=== PATIENT | male | born 1935 | race Caucasian/White ===

== ENCOUNTER 2017-09-07 14:14 | Inpatient (IN) | payer MEDICARE, OTHER ==
[~2017-09-07] VITALS: Ht 180.3 cm; Wt 88.5 kg
--- NOTE | 2017-09-07 19:30 | NUR ---
Received pt lying comfortably in bed, alert, awake and oriented x3. Able to make needs known. Son at bedside. No acute distress noted. denies pain at this time. Complained of SOB, o2 2LPM via NC was given, verbalization of relief was noted. Vital signs stable. MD made aware regarding med recon. Pertinent assessments done. Photos taken and placed on chart. MRSA swab done and sent to lab. Kept clean, dry and comfortable. Side rails up x2. Bed alarm on. Bed locked and in lowest position. Call light within reach. All needs attended.
[2017-09-07] MEDS ORDERED: HEPA1DIS10 SQ (20:52)
[2017-09-07] MEDS ORDERED: HYDR-3326 PO (20:52)
[2017-09-07] MEDS ORDERED: HYDR-4076 PO (20:52)
[2017-09-07] MEDS ORDERED: INSU3INS6 SQ (20:52)
[2017-09-07] MEDS ORDERED: SENN-167 PO (20:52)
[2017-09-07] MEDS ORDERED: DEXTROSE 50% 50 ML DISP.SYRIN IV PRN (22:00)
[2017-09-07] MEDS ORDERED: Z GUARD REMEDY PASTE 57 GM TUBE TOP PRN (22:00)
[2017-09-07] MEDS: HYDROCODONE/APAP 5-325MG TABLET PO PRN (22:19)
[2017-09-07] MEDS: BLOOD SUGAR DIAGNOSTIC 1 EACH STRIP VI SCH (22:19)
[2017-09-07 22:25] VITALS: BP 145/61
[2017-09-07] MEDS: INSULIN REGULAR, HUMAN 300 UNIT/3 ML VIAL SQ PRN (22:29)
[2017-09-08] MEDS: BLOOD SUGAR DIAGNOSTIC 1 EACH STRIP VI SCH ×4 (07:07→21:25)
[2017-09-08 07:10] LABS: BASOPHILS % (AUTO) 0.3 % (0.0-2.0); EOSINOPHILS # (AUTO) 0.1 K/uL (0.0-0.7); EOSINOPHILS % (AUTO) 0.9 % (0.0-7.0); HEMATOCRIT 23.8 % (36.7-47.1); HEMOGLOBIN 8.1 g/dL (12.5-16.3); LYMPHOCYTES # (AUTO) 3.1 K/uL (20.0-40.0); LYMPHOCYTES % (AUTO) 40.5 % (20.5-51.5); MEAN CORPUSCULAR HEMOGLOBIN 33.6 uug (23.8-33.4); MEAN CORPUSCULAR HGB CONC 34 g/dL (32.5-36.3); MEAN CORPUSCULAR VOLUME 98.4 fL (73.0-96.2); MONOCYTES # (AUTO) 0.6 K/uL (2.0-10.0); MONOCYTES % (AUTO) 7.6 % (0.0-11.0); NEUTROPHILS # (AUTO) 3.9 K/uL (1.8-8.9); NEUTROPHILS % (AUTO) 50.7 % (38.5-71.5); PLATELET COUNT (AUTO) 130 K/uL (152-348); WHITE BLOOD COUNT (AUTO) 7.7 K/uL (3.6-10.2)
[2017-09-08 07:25] LABS: CARBON DIOXIDE 26 mmol/L (21-32); CHLORIDE 106 mmol/L (98-107); CREATININE 1.6 mg/dL (0.6-1.3); GLUCOSE 176 mg/dL (74-106); MAGNESIUM 2.1 mg/dL (1.8-2.4); PHOSPHOROUS 2.5 mg/dL (2.5-4.9); UREA NITROGEN, BLOOD 35 mg/dL (7-18)
[2017-09-08] MEDS ORDERED: SENNOSIDES 1 TABLET PO PRN ×2 (07:30→07:45)
[2017-09-08] MEDS ORDERED: HYDROCODONE/APAP 5-325MG TABLET PO PRN (07:30)
[2017-09-08] MEDS ORDERED: LUTEIN ZEAXANTHIN (07:40)
[2017-09-08] MEDS ORDERED: DUTA0.5C PO (07:40)
[2017-09-08] MEDS ORDERED: CYAN10009 PO (07:40)
[2017-09-08] MEDS ORDERED: MIRA25TA PO (07:40)
[2017-09-08] MEDS ORDERED: DOXA4TAB3 PO (07:40)
[2017-09-08] MEDS ORDERED: FERR325T28 PO (07:40)
[2017-09-08] MEDS ORDERED: CHOL200010 PO (07:40)
[2017-09-08] MEDS ORDERED: MAGN400C PO (07:40)
[2017-09-08] MEDS ORDERED: ASPI-612 PO (07:40)
[2017-09-08] MEDS ORDERED: ATEN25TA PO (07:40)
[2017-09-08] MEDS ORDERED: ESOM40CA PO (07:40)
[2017-09-08] MEDS ORDERED: DORZ10DR13 RIGHTEYE (07:40)
[2017-09-08] MEDS ORDERED: ATOR80TA PO (07:40)
[2017-09-08 07:51] LABS: RED BLOOD CELL COUNT(AUTO) 2.42 MIL/uL (4.06-5.63)
[2017-09-08 08:00] VITALS: BP 143/68
--- NOTE | 2017-09-08 08:00 | NUR ---
Received patient awake, verbally responsive, not in any form of acute distress. He denies any pain or discomfort. Call light placed within reach. Reminded to use call light for assistance with verbalized understanding. Assisted to his needs.
[2017-09-08] MEDS ORDERED: DORZOLAMIDE/TIMOLOL OPHT DROP 10 ML BOTTLE RIGHTEYE SCH (09:00)
[2017-09-08] MEDS: ASPIRIN 325 MG TABLET PO SCH (09:08)
[2017-09-08] MEDS: FERROUS SULFATE 325 MG TABEC PO SCH (09:09)
[2017-09-08] MEDS: CYANOCOBALAMIN 1,000 MCG TABLET PO SCH (09:09)
[2017-09-08] MEDS: hydrALAZINE HCL 25 MG TABLET PO SCH ×2 (09:09→21:24)
[2017-09-08] MEDS: CHOLECALCIFEROL 1,000 UNIT TABLET PO SCH (09:09)
[2017-09-08] MEDS: BETA CAROTENE/VIT C & E/MIN TABLET PO SCH (09:09)
[2017-09-08] MEDS: MAGNESIUM OXIDE 250 MG TABLET PO SCH ×2 (09:10→17:06)
[2017-09-08] MEDS: HEPARIN SODIUM,PORCINE 5,000 UNITS/ML VIAL SQ SCH ×2 (09:11→21:38)
[2017-09-08] MEDS: PANTOPRAZOLE SODIUM 40 MG TABLET.DR PO SCH (09:14)
[2017-09-08] MEDS: INSULIN REGULAR, HUMAN 300 UNIT/3 ML VIAL SQ PRN ×3 (11:56→21:31)
[2017-09-08] MEDS ORDERED: TIMO5DRO31 OP (13:29)
[2017-09-08] MEDS: PATIENT MAY USE OWN MED- MD OK RIGHTEYE SCH (14:45)
--- NOTE | 2017-09-08 19:45 | NUR ---
Pt resting in bed. AAO x4. No acute distress noted. C/o pain on the lower back. Will f/u with intervention. Safety measures maintained. Call light and personal belongings within reach. Will continue to monitor.
[2017-09-08] MEDS: DUTASTERIDE 0.5 MG CAPSULE PO SCH (21:22)
[2017-09-08] MEDS: ATENOLOL 25 MG TABLET PO SCH (21:22)
[2017-09-08] MEDS: DOXAZOSIN 2 MG TABLET PO SCH (21:23)
[2017-09-08] MEDS: MYBETRIQ 25 MG PO SCH (21:24)
[2017-09-08] MEDS: INSULIN GLARGINE,HUM 300 UNITS/3 ML CARTRIDGE SQ SCH (21:31)
[2017-09-08] MEDS: HYDROCODONE/APAP 5-325MG TABLET PO PRN (21:40)
[2017-09-08] MEDS ORDERED: ATORVASTATIN 40 MG TABLET ONE (22:07)
[2017-09-08] MEDS: ATORVASTATIN 40 MG TABLET PO SCH (22:41)
--- NOTE | 2017-09-09 05:38 | NUR ---
Pt slept comfortably at night. Meds and insulin coverage given per MD's order. Pt uses urinal to void. All needs attended to promptly. Will endorse to day shift RN. Continue to monitor.
[2017-09-09] MEDS: PANTOPRAZOLE SODIUM 40 MG TABLET.DR PO SCH (06:19)
[2017-09-09] MEDS: BLOOD SUGAR DIAGNOSTIC 1 EACH STRIP VI SCH ×4 (06:30→20:59)
[2017-09-09 07:25] VITALS: BP 122/61
[2017-09-09] MEDS: INSULIN REGULAR, HUMAN 300 UNIT/3 ML VIAL SQ PRN ×4 (08:15→21:05)
[2017-09-09] MEDS: HEPARIN SODIUM,PORCINE 5,000 UNITS/ML VIAL SQ SCH ×2 (08:17→21:06)
[2017-09-09] MEDS: BETA CAROTENE/VIT C & E/MIN TABLET PO SCH (08:18)
[2017-09-09] MEDS: FERROUS SULFATE 325 MG TABEC PO SCH (08:18)
[2017-09-09] MEDS: CYANOCOBALAMIN 1,000 MCG TABLET PO SCH (08:18)
[2017-09-09] MEDS: ASPIRIN 325 MG TABLET PO SCH (08:18)
[2017-09-09] MEDS: CHOLECALCIFEROL 1,000 UNIT TABLET PO SCH (08:18)
[2017-09-09] MEDS: hydrALAZINE HCL 25 MG TABLET PO SCH ×2 (08:19→20:47)
[2017-09-09] MEDS: MAGNESIUM OXIDE 250 MG TABLET PO SCH ×2 (08:27→17:22)
[2017-09-09] MEDS: PATIENT MAY USE OWN MED- MD OK RIGHTEYE SCH (08:27)
--- NOTE | 2017-09-09 09:31 | NUR ---
patient noted sitting up in bed, at bedside, call light in reach, bed locked and in lowest position, no complaints of pain at this time, no signs of distress noted
[2017-09-09 20:00] VITALS: BP 145/70
[2017-09-09] MEDS ORDERED: diphenhydrAMINE 25 MG CAP PO PRN (20:00)
[2017-09-09] MEDS: DUTASTERIDE 0.5 MG CAPSULE PO SCH (20:47)
[2017-09-09] MEDS: ATORVASTATIN 40 MG TABLET PO SCH (20:48)
[2017-09-09] MEDS: DOXAZOSIN 2 MG TABLET PO SCH (20:48)
[2017-09-09] MEDS: ATENOLOL 25 MG TABLET PO SCH (20:49)
[2017-09-09] MEDS: MYBETRIQ 25 MG PO SCH (20:55)
--- NOTE | 2017-09-09 21:00 | NUR ---
resting in bed at beginning of shift. aaox4 glez's uses back brace when OOB. needs attended. no acute distress noted. will monitor patient. O2 @ 2L via \ nasal cannula. pulse 0x 94% tolerated po meds well. medicated for pain as order.
[2017-09-09 21:04] VITALS: BP 169/77
[2017-09-09] MEDS: INSULIN GLARGINE,HUM 300 UNITS/3 ML CARTRIDGE SQ SCH (21:06)
[2017-09-09] MEDS: HYDROCODONE/APAP 5-325MG TABLET PO PRN (23:09)
--- NOTE | 2017-09-10 05:41 | NUR ---
quiet night.slept most of the shift. ambulates with walker to the BR with back brace on. no acute distress noted. kept comfortable.
[2017-09-10] MEDS: PANTOPRAZOLE SODIUM 40 MG TABLET.DR PO SCH (06:44)
[2017-09-10] MEDS: BLOOD SUGAR DIAGNOSTIC 1 EACH STRIP VI SCH ×4 (06:44→21:18)
[2017-09-10 08:00] VITALS: BP 149/67
[2017-09-10] MEDS: INSULIN REGULAR, HUMAN 300 UNIT/3 ML VIAL SQ PRN ×4 (08:02→21:20)
[2017-09-10] MEDS: HYDROCODONE/APAP 5-325MG TABLET PO PRN (08:58)
[2017-09-10] MEDS: ASPIRIN 325 MG TABLET PO SCH (08:58)
[2017-09-10] MEDS: CYANOCOBALAMIN 1,000 MCG TABLET PO SCH (08:59)
[2017-09-10] MEDS: FERROUS SULFATE 325 MG TABEC PO SCH (08:59)
[2017-09-10] MEDS: BETA CAROTENE/VIT C & E/MIN TABLET PO SCH (09:00)
[2017-09-10] MEDS: hydrALAZINE HCL 25 MG TABLET PO SCH ×2 (09:00→21:27)
[2017-09-10] MEDS: CHOLECALCIFEROL 1,000 UNIT TABLET PO SCH (09:00)
[2017-09-10] MEDS: HEPARIN SODIUM,PORCINE 5,000 UNITS/ML VIAL SQ SCH ×2 (09:21→21:19)
[2017-09-10] MEDS: PATIENT MAY USE OWN MED- MD OK RIGHTEYE SCH (10:45)
[2017-09-10] MEDS: MAGNESIUM OXIDE 250 MG TABLET PO SCH ×2 (10:45→17:50)
[2017-09-10] MEDS: LORATADINE 10 MG TABLET PO SCH (12:45)
--- NOTE | 2017-09-10 12:45 | NUR ---
Offered Loratadine. Patient refused for now, saying there is no need at the moment.
--- NOTE | 2017-09-10 15:20 | NUR ---
Patient is sitting on the couch, entertaining three male guests.
[2017-09-10] MEDS: BISACODYL 5 MG TABLET.DR PO PRN (18:34)
--- NOTE | 2017-09-10 19:30 | NUR ---
Received patient in bed. Alert and verbally responsive. Able to make needs known. Denies any pain and discomfort at this time. No acute distress. No SOB. Ambulates to the bathroom with a walker. Wears a brace when OOB. Kept clean and dry. All needs attended to promptly. Call light within reach. Will continue to monitor.
[2017-09-10 19:44] VITALS: BP 150/69
[2017-09-10] MEDS: INSULIN GLARGINE,HUM 300 UNITS/3 ML CARTRIDGE SQ SCH (21:24)
[2017-09-10] MEDS: ATENOLOL 25 MG TABLET PO SCH (21:26)
[2017-09-10] MEDS: DUTASTERIDE 0.5 MG CAPSULE PO SCH (21:27)
[2017-09-10] MEDS: DOXAZOSIN 2 MG TABLET PO SCH (21:28)
[2017-09-10] MEDS: ATORVASTATIN 40 MG TABLET PO SCH (21:28)
[2017-09-10] MEDS: BISACODYL 10 MG SUPP.RECT RC PRN (21:29)
[2017-09-10] MEDS: MYBETRIQ 25 MG PO SCH (21:43)
[2017-09-11] MEDS: PANTOPRAZOLE SODIUM 40 MG TABLET.DR PO SCH (06:32)
[2017-09-11] MEDS: BLOOD SUGAR DIAGNOSTIC 1 EACH STRIP VI SCH ×4 (06:34→20:34)
--- NOTE | 2017-09-11 07:19 | NUR ---
Patient slept comfortably throughout the night. No c/o pain and discomfort. No acute distress. No SOB. BS this am is 119. NO coverage needed. Brace used when OOB to go to bathroom. Kept clean and dry. All needs attended to promptly. Call light within reach. Will continue to monitor.
--- NOTE | 2017-09-11 07:39 | NUR ---
patient noted resting in bed with eyes closed, arouses easily, no complaints of pain at this time, no signs of distress, call light in reach, bed locked and in lowest position, x 2 bed rails, all needs met at this time.
[2017-09-11 08:37] VITALS: BP 132/66
[2017-09-11] MEDS: HEPARIN SODIUM,PORCINE 5,000 UNITS/ML VIAL SQ SCH ×2 (08:48→20:44)
[2017-09-11] MEDS: ASPIRIN 325 MG TABLET PO SCH (08:50)
[2017-09-11] MEDS: BETA CAROTENE/VIT C & E/MIN TABLET PO SCH (08:53)
[2017-09-11] MEDS: CYANOCOBALAMIN 1,000 MCG TABLET PO SCH (08:53)
[2017-09-11] MEDS: FERROUS SULFATE 325 MG TABEC PO SCH (08:53)
[2017-09-11] MEDS: CHOLECALCIFEROL 1,000 UNIT TABLET PO SCH (08:53)
[2017-09-11] MEDS: LORATADINE 10 MG TABLET PO SCH (08:53)
[2017-09-11] MEDS: MAGNESIUM OXIDE 250 MG TABLET PO SCH ×2 (08:54→17:03)
[2017-09-11] MEDS: PATIENT MAY USE OWN MED- MD OK RIGHTEYE SCH (08:54)
[2017-09-11] MEDS: hydrALAZINE HCL 25 MG TABLET PO SCH ×2 (08:54→20:37)
[2017-09-11] MEDS: INSULIN REGULAR, HUMAN 300 UNIT/3 ML VIAL SQ PRN ×3 (12:13→20:43)
[2017-09-11 20:00] VITALS: BP 138/58
[2017-09-11] MEDS: DOXAZOSIN 2 MG TABLET PO SCH (20:35)
[2017-09-11] MEDS: MYBETRIQ 25 MG PO SCH (20:35)
[2017-09-11] MEDS: DUTASTERIDE 0.5 MG CAPSULE PO SCH (20:37)
[2017-09-11] MEDS: ATENOLOL 25 MG TABLET PO SCH (20:37)
[2017-09-11] MEDS: ATORVASTATIN 40 MG TABLET PO SCH (20:37)
[2017-09-11] MEDS: INSULIN GLARGINE,HUM 300 UNITS/3 ML CARTRIDGE SQ SCH (20:44)
[2017-09-11] MEDS: HYDROCODONE/APAP 5-325MG TABLET PO PRN (22:11)
[2017-09-12] MEDS: PANTOPRAZOLE SODIUM 40 MG TABLET.DR PO SCH (06:43)
[2017-09-12] MEDS: BLOOD SUGAR DIAGNOSTIC 1 EACH STRIP VI SCH ×4 (06:45→22:48)
--- NOTE | 2017-09-12 07:04 | NUR ---
Patient slept comfortably throughout the night. No c/o pain and discomfort. No acute distress. No SOB. BS this am is 93. No coverage needed. Brace used when OOB to go to bathroom. Kept clean and dry. All needs attended to promptly. Call light within reach. Will continue to monitor.
[2017-09-12 07:11] LABS: BASOPHILS % (AUTO) 0.2 % (0.0-2.0); EOSINOPHILS # (AUTO) 0.2 K/uL (0.0-0.7); EOSINOPHILS % (AUTO) 2.2 % (0.0-7.0); HEMATOCRIT 25.4 % (36.7-47.1); HEMOGLOBIN 8.7 g/dL (12.5-16.3); LYMPHOCYTES # (AUTO) 4.5 K/uL (20.0-40.0); LYMPHOCYTES % (AUTO) 56.6 % (20.5-51.5); MEAN CORPUSCULAR HEMOGLOBIN 33.5 uug (23.8-33.4); MEAN CORPUSCULAR HGB CONC 34 g/dL (32.5-36.3); MEAN CORPUSCULAR VOLUME 97.5 fL (73.0-96.2); MONOCYTES # (AUTO) 0.4 K/uL (2.0-10.0); MONOCYTES % (AUTO) 5.5 % (0.0-11.0); NEUTROPHILS # (AUTO) 2.9 K/uL (1.8-8.9); NEUTROPHILS % (AUTO) 35.5 % (38.5-71.5); PLATELET COUNT (AUTO) 197 K/uL (152-348); RED BLOOD CELL COUNT(AUTO) 2.61 MIL/uL (4.06-5.63)
[2017-09-12 07:30] VITALS: BP 149/72
[2017-09-12 07:37] LABS: ALANINE AMINOTRANSFERASE 29 U/L (16-63); ALKALINE PHOSPHATASE 70 U/L (50-136); ASPARTATE AMINOTRANSFERASE 26 U/L (15-37); BILIRUBIN,TOTAL 0.3 mg/dL (0.2-1.0); CARBON DIOXIDE 31 mmol/L (21-32); CHLORIDE 108 mmol/L (98-107); CREATININE 1.6 mg/dL (0.6-1.3); GLUCOSE 98 mg/dL (74-106); PHOSPHOROUS 3.4 mg/dL (2.5-4.9); POTASSIUM 4.1 mmol/L (3.5-5.1); UREA NITROGEN, BLOOD 29 mg/dL (7-18)
[2017-09-12] MEDS: PATIENT MAY USE OWN MED- MD OK RIGHTEYE SCH (09:23)
[2017-09-12] MEDS: ASPIRIN 325 MG TABLET PO SCH (09:23)
[2017-09-12] MEDS: CHOLECALCIFEROL 1,000 UNIT TABLET PO SCH (09:24)
[2017-09-12] MEDS: hydrALAZINE HCL 25 MG TABLET PO SCH ×2 (09:24→22:12)
[2017-09-12] MEDS: BETA CAROTENE/VIT C & E/MIN TABLET PO SCH (09:24)
[2017-09-12] MEDS: CYANOCOBALAMIN 1,000 MCG TABLET PO SCH (09:25)
[2017-09-12] MEDS: FERROUS SULFATE 325 MG TABEC PO SCH (09:25)
[2017-09-12] MEDS: LORATADINE 10 MG TABLET PO SCH (09:25)
[2017-09-12] MEDS: MAGNESIUM OXIDE 250 MG TABLET PO SCH ×2 (09:30→16:55)
[2017-09-12] MEDS: HEPARIN SODIUM,PORCINE 5,000 UNITS/ML VIAL SQ SCH ×2 (09:38→22:15)
--- NOTE | 2017-09-12 12:33 | NUR ---
Today is DAY#5 since surgery. Orders to change dressing completed. Skin warm to touch, old gauze has minimal drainage, wound is dry. No fever, no verbalized pain, no other s/s of infection. Cleansed with NS, patted dry, covered with sterile gauze, abd pad and surgical dressing to pad against back brace which irritates patient. Called Dr Tyrone Hylton to confirm orders. Dr Hylton ordered Bacitracin on wound BID for [address] Scales, okayed by Dr Scales. Addendum: 09/12/17 at 1244 by MACRINA BAGLEY LVN Correction: Consulted with Dr Wesly Gonsalves, okayed by Dr Wesly Gonsalves. Addendum: 09/12/17 at [address]AGLEY LVN [address] Tyrone Hylton had said that he preferred the surgical wound to be open to air. However, if the patient needs cushioning because of the back brace, we may put a cover on the wound.
[2017-09-12] MEDS: BACITRACIN/POLYMYXIN B OINT 15 GM TUBE TOP SCH (16:56)
[2017-09-12] MEDS ORDERED: BACITRACIN/POLYMYXIN B OINT 15 GM TUBE TOP ONE (17:00)
[2017-09-12] MEDS: INSULIN REGULAR, HUMAN 300 UNIT/3 ML VIAL SQ PRN ×2 (17:37→22:51)
[2017-09-12 20:38] VITALS: BP 130/55
[2017-09-12] MEDS: DUTASTERIDE 0.5 MG CAPSULE PO SCH (22:08)
[2017-09-12] MEDS: DOXAZOSIN 2 MG TABLET PO SCH (22:09)
[2017-09-12] MEDS: ATENOLOL 25 MG TABLET PO SCH (22:10)
[2017-09-12] MEDS: ATORVASTATIN 40 MG TABLET PO SCH (22:11)
[2017-09-12] MEDS: MYBETRIQ 25 MG PO SCH (22:38)
[2017-09-12] MEDS: INSULIN GLARGINE,HUM 300 UNITS/3 ML CARTRIDGE SQ SCH (22:47)
[2017-09-13] MEDS: PANTOPRAZOLE SODIUM 40 MG TABLET.DR PO SCH (06:41)
[2017-09-13] MEDS: BLOOD SUGAR DIAGNOSTIC 1 EACH STRIP VI SCH ×4 (06:42→20:20)
[2017-09-13 07:30] VITALS: BP 144/66
[2017-09-13] MEDS: CYANOCOBALAMIN 1,000 MCG TABLET PO SCH (08:44)
[2017-09-13] MEDS: PATIENT MAY USE OWN MED- MD OK RIGHTEYE SCH (08:44)
[2017-09-13] MEDS: hydrALAZINE HCL 25 MG TABLET PO SCH ×2 (08:45→20:26)
[2017-09-13] MEDS: FERROUS SULFATE 325 MG TABEC PO SCH (08:45)
[2017-09-13] MEDS: CHOLECALCIFEROL 1,000 UNIT TABLET PO SCH (08:45)
[2017-09-13] MEDS: LORATADINE 10 MG TABLET PO SCH (08:45)
[2017-09-13] MEDS: MAGNESIUM OXIDE 250 MG TABLET PO SCH ×2 (08:45→16:23)
[2017-09-13] MEDS: BETA CAROTENE/VIT C & E/MIN TABLET PO SCH (08:45)
[2017-09-13] MEDS: ASPIRIN 325 MG TABLET PO SCH (08:46)
[2017-09-13] MEDS: BACITRACIN/POLYMYXIN B OINT 15 GM TUBE TOP SCH ×2 (08:47→16:06)
[2017-09-13] MEDS: HEPARIN SODIUM,PORCINE 5,000 UNITS/ML VIAL SQ SCH ×2 (08:49→20:21)
[2017-09-13] MEDS: INSULIN REGULAR, HUMAN 300 UNIT/3 ML VIAL SQ PRN ×4 (08:54→20:24)
--- NOTE | 2017-09-13 16:07 | NUR ---
WOUND CARE IS DONE, COVERED WITH 4X4 GAUZE APPLIED THE MEDICATION, SKIN IS PINK IN COLOR, NO INFECTION NOTED
[2017-09-13] MEDS: BISACODYL 10 MG SUPP.RECT RC PRN (19:55)
--- NOTE | 2017-09-13 20:00 | NUR ---
RECEIVED PATIENT AWAKE IN BED, WATCHING TV. A/O X4. VERY PLEASANT WHEN APPROACHED. DENIES ANY PAIN OR DISCOMFORT. DRESSING NOTED TO LOWER BACK, C/D/I. NO RESP. DISTRESS NOTED. PATIENT IS C/O CONSTIPATION AND ASKING FOR SUPPOSITORY. PATIENT GIVEN DULCOLAX SUPP. ORDERED. WILL CONTINUE TO MONITOR AND ASSESS.
[2017-09-13] MEDS: INSULIN GLARGINE,HUM 300 UNITS/3 ML CARTRIDGE SQ SCH (20:23)
[2017-09-13] MEDS: DUTASTERIDE 0.5 MG CAPSULE PO SCH (20:26)
[2017-09-13] MEDS: MYBETRIQ 25 MG PO SCH (20:27)
[2017-09-13] MEDS: ATORVASTATIN 40 MG TABLET PO SCH (20:27)
[2017-09-13] MEDS: ATENOLOL 25 MG TABLET PO SCH (20:28)
[2017-09-13] MEDS: DOXAZOSIN 2 MG TABLET PO SCH (20:28)
--- NOTE | 2017-09-13 22:00 | NUR ---
NO BOWEL MOVEMENT NOTED AT THIS TIME. PATIENT GIVEN PRUNE JUICE X2. WILL CONTINUE TO MONITOR.
[2017-09-14] MEDS: BLOOD SUGAR DIAGNOSTIC 1 EACH STRIP VI SCH ×4 (06:39→21:58)
[2017-09-14] MEDS: PANTOPRAZOLE SODIUM 40 MG TABLET.DR PO SCH (06:39)
--- NOTE | 2017-09-14 07:14 | NUR ---
PATIENT AWAKE IN BED. SLEPT WELL. PATIENT HAD TWO LARGE BOWEL MOVEMENTS. DENIES PAIN. CALL LIGHT IN REACH. ALL NEEDS ATTENDED.
--- NOTE | 2017-09-14 07:45 | NUR ---
Received patient in bed. Alert and verbally responsive. Able to make needs known. Denies any pain and discomfort at this time. No acute distress. No SOB. Kept clean and dry. All needs attended to promptly. Call light within reach. Will continue to monitor.
[2017-09-14 08:05] VITALS: BP 158/75
[2017-09-14] MEDS: PATIENT MAY USE OWN MED- MD OK RIGHTEYE SCH (08:20)
[2017-09-14] MEDS: CHOLECALCIFEROL 1,000 UNIT TABLET PO SCH (08:20)
[2017-09-14] MEDS: MAGNESIUM OXIDE 250 MG TABLET PO SCH ×2 (08:21→16:03)
[2017-09-14] MEDS: ASPIRIN 325 MG TABLET PO SCH (08:21)
[2017-09-14] MEDS: CYANOCOBALAMIN 1,000 MCG TABLET PO SCH (08:21)
[2017-09-14] MEDS: hydrALAZINE HCL 25 MG TABLET PO SCH ×2 (08:21→20:39)
[2017-09-14] MEDS: LORATADINE 10 MG TABLET PO SCH (08:21)
[2017-09-14] MEDS: BETA CAROTENE/VIT C & E/MIN TABLET PO SCH (08:21)
[2017-09-14] MEDS: FERROUS SULFATE 325 MG TABEC PO SCH (08:21)
[2017-09-14] MEDS: BACITRACIN/POLYMYXIN B OINT 15 GM TUBE TOP SCH ×2 (08:22→16:03)
[2017-09-14] MEDS: HEPARIN SODIUM,PORCINE 5,000 UNITS/ML VIAL SQ SCH ×2 (08:25→20:41)
[2017-09-14] MEDS: INSULIN REGULAR, HUMAN 300 UNIT/3 ML VIAL SQ PRN ×3 (11:41→22:01)
[2017-09-14 19:30] VITALS: BP 176/80
[2017-09-14] MEDS: ATORVASTATIN 40 MG TABLET PO SCH (20:38)
[2017-09-14] MEDS: DUTASTERIDE 0.5 MG CAPSULE PO SCH (20:38)
[2017-09-14] MEDS: DOXAZOSIN 2 MG TABLET PO SCH (20:39)
[2017-09-14] MEDS: ATENOLOL 25 MG TABLET PO SCH (20:40)
[2017-09-14] MEDS: BISACODYL 5 MG TABLET.DR PO PRN (20:51)
[2017-09-14] MEDS: MYBETRIQ 25 MG PO SCH (20:53)
[2017-09-14] MEDS: INSULIN GLARGINE,HUM 300 UNITS/3 ML CARTRIDGE SQ SCH (21:59)
[2017-09-15 00:48] VITALS: BP 134/68
[2017-09-15] MEDS: PANTOPRAZOLE SODIUM 40 MG TABLET.DR PO SCH (06:21)
[2017-09-15] MEDS: BLOOD SUGAR DIAGNOSTIC 1 EACH STRIP VI SCH ×4 (06:30→21:35)
--- NOTE | 2017-09-15 06:30 | NUR ---
Pt alert awake in no acute distress. States he was able to have a bowel movement overnight. Denies any pain, headaches, discomfort, or SOB. No s/s of hyper/hypoglycemia. Able to make needs known. Will continue to monitor. Call light within reach.
[2017-09-15 07:12] VITALS: BP 122/68
--- NOTE | 2017-09-15 07:35 | NUR ---
Received patient in bed sleeping. Able to make needs known. Denies any pain and discomfort at this time. No acute distress. No SOB. Kept clean and dry. All needs attended to promptly. Call light within reach. Will continue to monitor.
[2017-09-15] MEDS: HEPARIN SODIUM,PORCINE 5,000 UNITS/ML VIAL SQ SCH (08:01)
[2017-09-15] MEDS: BETA CAROTENE/VIT C & E/MIN TABLET PO SCH (08:03)
[2017-09-15] MEDS: LORATADINE 10 MG TABLET PO SCH (08:03)
[2017-09-15] MEDS: MAGNESIUM OXIDE 250 MG TABLET PO SCH ×2 (08:03→16:05)
[2017-09-15] MEDS: ASPIRIN 325 MG TABLET PO SCH (08:03)
[2017-09-15] MEDS: CHOLECALCIFEROL 1,000 UNIT TABLET PO SCH (08:03)
[2017-09-15] MEDS: PATIENT MAY USE OWN MED- MD OK RIGHTEYE SCH (08:03)
[2017-09-15] MEDS: CYANOCOBALAMIN 1,000 MCG TABLET PO SCH (08:03)
[2017-09-15] MEDS: FERROUS SULFATE 325 MG TABEC PO SCH (08:04)
[2017-09-15] MEDS: hydrALAZINE HCL 25 MG TABLET PO SCH ×2 (08:04→21:38)
[2017-09-15] MEDS: BACITRACIN/POLYMYXIN B OINT 15 GM TUBE TOP SCH ×2 (08:04→16:07)
[2017-09-15] MEDS: INSULIN REGULAR, HUMAN 300 UNIT/3 ML VIAL SQ PRN ×3 (11:29→21:33)
[2017-09-15 21:12] VITALS: BP 119/73
[2017-09-15] MEDS: INSULIN GLARGINE,HUM 300 UNITS/3 ML CARTRIDGE SQ SCH (21:35)
[2017-09-15] MEDS: DUTASTERIDE 0.5 MG CAPSULE PO SCH (21:38)
[2017-09-15] MEDS: ATORVASTATIN 40 MG TABLET PO SCH (21:39)
[2017-09-15] MEDS: HYDROCODONE/APAP 5-325MG TABLET PO PRN (21:42)
[2017-09-15] MEDS: DOXAZOSIN 2 MG TABLET PO SCH (21:43)
[2017-09-15] MEDS: ATENOLOL 25 MG TABLET PO SCH (21:43)
[2017-09-15] MEDS: MYBETRIQ 25 MG PO SCH (21:48)
[2017-09-16] MEDS: PANTOPRAZOLE SODIUM 40 MG TABLET.DR PO SCH (06:40)
[2017-09-16] MEDS: BLOOD SUGAR DIAGNOSTIC 1 EACH STRIP VI SCH ×4 (06:41→20:08)
[2017-09-16 07:14] VITALS: BP 116/56
--- NOTE | 2017-09-16 07:20 | NUR ---
Pt alert awake in no acute distress. . Denies any pain, headaches, discomfort, or SOB. Able to make needs known. Will continue to monitor. Call light within reach.
[2017-09-16] MEDS: LORATADINE 10 MG TABLET PO SCH (08:10)
[2017-09-16] MEDS: hydrALAZINE HCL 25 MG TABLET PO SCH ×2 (08:10→20:13)
[2017-09-16] MEDS: MAGNESIUM OXIDE 250 MG TABLET PO SCH ×2 (08:10→16:03)
[2017-09-16] MEDS: CYANOCOBALAMIN 1,000 MCG TABLET PO SCH (08:10)
[2017-09-16] MEDS: FERROUS SULFATE 325 MG TABEC PO SCH (08:10)
[2017-09-16] MEDS: ASPIRIN 325 MG TABLET PO SCH (08:10)
[2017-09-16] MEDS: BETA CAROTENE/VIT C & E/MIN TABLET PO SCH (08:10)
[2017-09-16] MEDS: CHOLECALCIFEROL 1,000 UNIT TABLET PO SCH (08:10)
[2017-09-16] MEDS: PATIENT MAY USE OWN MED- MD OK RIGHTEYE SCH (08:11)
[2017-09-16] MEDS: BACITRACIN/POLYMYXIN B OINT 15 GM TUBE TOP SCH ×2 (08:11→16:03)
[2017-09-16] MEDS: INSULIN REGULAR, HUMAN 300 UNIT/3 ML VIAL SQ PRN ×3 (11:05→20:08)
[2017-09-16] MEDS: INSULIN GLARGINE,HUM 300 UNITS/3 ML CARTRIDGE SQ SCH (20:07)
[2017-09-16] MEDS: MYBETRIQ 25 MG PO SCH (20:08)
[2017-09-16] MEDS: ATORVASTATIN 40 MG TABLET PO SCH (20:12)
[2017-09-16] MEDS: DUTASTERIDE 0.5 MG CAPSULE PO SCH (20:12)
[2017-09-16] MEDS: ATENOLOL 25 MG TABLET PO SCH (20:12)
[2017-09-16] MEDS: DOXAZOSIN 2 MG TABLET PO SCH (20:13)
--- NOTE | 2017-09-16 20:15 | NUR ---
PATIENT AWAKE IN BED WATCHING TV. A/O X4. BP ELEVATED, ROUTINE BP MEDS GIVEN. WILL CONTINUE TO MONITOR AND ASSESS. ALL OTHER VSS. DENIES PAIN OR DISCOMFORT. NO RESP. DISTRESS NOTED. DRESSING NOTED TO LOWER BACK, C/D/I. CALL LIGHT IN REACH. ALL NEEDS ATTENDED, WILL CONTINUE TO MONITOR AND ASSESS.
[2017-09-16] MEDS: BISACODYL 5 MG TABLET.DR PO PRN (20:24)
--- NOTE | 2017-09-16 20:30 | NUR ---
PATIENT REQUESTING FOR DULCOLAX PILLS STATING HE HAS NOT MOVED HIS BOWELS TODAY. PATIENT GIVEN DULCOLAX 2 TAB PO PRN ORDERED. WILL CONTINUE TO MONITOR.
[2017-09-16 20:56] VITALS: BP 130/80
[2017-09-16 20:59] VITALS: BP 161/70
[2017-09-16 21:45] VITALS: BP 159/70
--- NOTE | 2017-09-16 21:45 | NUR ---
RECHECKED PATIENTS BLOOD PRESSURE, 159/70. SLOWLY TRENDING DOWN. ASYMPTOMATIC. PATIENT DENIES ANY PAIN OR DISCOMFORT. WILL CONTINUE TO MONITOR AND ASSESS.
[2017-09-17] MEDS: PANTOPRAZOLE SODIUM 40 MG TABLET.DR PO SCH (06:24)
[2017-09-17] MEDS: BLOOD SUGAR DIAGNOSTIC 1 EACH STRIP VI SCH ×3 (06:30→15:52)
--- NOTE | 2017-09-17 06:39 | NUR ---
PATIENT AWAKE IN BED. SLEPT AT INTERVALS THROUGHOUT THE NIGHT. DENIES PAIN OR DISCOMFORT. RECHECKED BLOOD PRESSURE 147/70. ALL OTHER VSS. ASYMPTOMATIC. CALL LIGHT IN REACH. ALL NEEDS ATTENDED. WILL CONTINUE TO MONITOR.
[2017-09-17 07:44] LABS: BASOPHILS % (AUTO) 0.2 % (0.0-2.0); EOSINOPHILS # (AUTO) 0.2 K/uL (0.0-0.7); EOSINOPHILS % (AUTO) 1.8 % (0.0-7.0); HEMATOCRIT 29.9 % (36.7-47.1); HEMOGLOBIN 10.1 g/dL (12.5-16.3); LYMPHOCYTES # (AUTO) 5.2 K/uL (20.0-40.0); LYMPHOCYTES % (AUTO) 50.9 % (20.5-51.5); MEAN CORPUSCULAR HEMOGLOBIN 33.2 uug (23.8-33.4); MEAN CORPUSCULAR HGB CONC 34 g/dL (32.5-36.3); MEAN CORPUSCULAR VOLUME 97.9 fL (73.0-96.2); MONOCYTES # (AUTO) 0.5 K/uL (2.0-10.0); MONOCYTES % (AUTO) 5.1 % (0.0-11.0); NEUTROPHILS # (AUTO) 4.3 K/uL (1.8-8.9); PLATELET COUNT (AUTO) 254 K/uL (152-348); RED BLOOD CELL COUNT(AUTO) 3.05 MIL/uL (4.06-5.63); WHITE BLOOD COUNT (AUTO) 10.1 K/uL (3.6-10.2)
[2017-09-17 07:59] LABS: ALANINE AMINOTRANSFERASE 37 U/L (16-63); ALKALINE PHOSPHATASE 100 U/L (50-136); ASPARTATE AMINOTRANSFERASE 21 U/L (15-37); BILIRUBIN,TOTAL 0.4 mg/dL (0.2-1.0); CARBON DIOXIDE 28 mmol/L (21-32); CHLORIDE 106 mmol/L (98-107); CREATININE 1.6 mg/dL (0.6-1.3); GLUCOSE 101 mg/dL (74-106); MAGNESIUM 1.8 mg/dL (1.8-2.4); PHOSPHOROUS 3.6 mg/dL (2.5-4.9); TOTAL PROTEIN, SERUM 6.4 g/dL (6.4-8.2); UREA NITROGEN, BLOOD 24 mg/dL (7-18)
[2017-09-17 08:00] VITALS: BP 155/67
[2017-09-17] MEDS: PATIENT MAY USE OWN MED- MD OK RIGHTEYE SCH (08:04)
[2017-09-17] MEDS: FERROUS SULFATE 325 MG TABEC PO SCH (08:04)
[2017-09-17] MEDS: CHOLECALCIFEROL 1,000 UNIT TABLET PO SCH (08:04)
[2017-09-17] MEDS: BETA CAROTENE/VIT C & E/MIN TABLET PO SCH (08:04)
[2017-09-17 08:05] VITALS: BP 159/70
[2017-09-17] MEDS: hydrALAZINE HCL 25 MG TABLET PO SCH (08:05)
[2017-09-17] MEDS: LORATADINE 10 MG TABLET PO SCH (08:05)
[2017-09-17] MEDS: BACITRACIN/POLYMYXIN B OINT 15 GM TUBE TOP SCH ×2 (08:05→16:10)
[2017-09-17] MEDS: CYANOCOBALAMIN 1,000 MCG TABLET PO SCH (08:05)
[2017-09-17] MEDS: ASPIRIN 325 MG TABLET PO SCH (08:05)
[2017-09-17] MEDS: MAGNESIUM OXIDE 250 MG TABLET PO SCH ×2 (08:05→16:05)
[2017-09-17] MEDS: INSULIN REGULAR, HUMAN 300 UNIT/3 ML VIAL SQ PRN ×2 (11:42→16:06)
--- NOTE | 2017-09-17 17:11 | NUR ---
D/C ORDERS RECEIVED NOTED AND CARRIED OUT,D/C INSTRUCTION GIVEN TO THE PT ,PT VERBALIZED UNDERSTANDING ALL THE INSTRUCTION ,PT LEFT THE FACILITY VIA PRIVATE CAR WITH HIS IN STABLE CONDITION.
== END 2017-09-17 17:15 | disposition home health service (06) | DRG 561 ==
PROVIDERS: ADMIT Physical Medicine & Rehabilitation Pain Medicine; ATTEND Physical Medicine & Rehabilitation Pain Medicine
DX: Z47.89 Encounter for other orthopedic aftercare (principal); E11.22 Type 2 diabetes mellitus with diabetic chronic kidney disease; I44.1 Atrioventricular block, second degree; I12.9 Hypertensive chronic kidney disease with stage 1 through stage 4 chronic kidney disease, or unspecified chronic kidney disease; N18.9 Chronic kidney disease, unspecified; I49.9 Cardiac arrhythmia, unspecified; I25.10 Atherosclerotic heart disease of native coronary artery without angina pectoris; E78.5 Hyperlipidemia, unspecified; Z96.651 Presence of right artificial knee joint; N40.0 Benign prostatic hyperplasia without lower urinary tract symptoms; H40.9 Unspecified glaucoma; Z95.5 Presence of coronary angioplasty implant and graft; K59.00 Constipation, unspecified; R05 Cough; Z79.4 Long term (current) use of insulin; R09.89 Other specified symptoms and signs involving the circulatory and respiratory systems
CPT/HCPCS: 36415; 83735; 84100; 85025; 92526; 92610; 97110; 97112; 97116; 97165; 97530; 97535; J1644; J1815; Q0163